=== PATIENT | female | born 1945 ===

== ENCOUNTER → 2020-02-28 | Outpatient (CLI) | payer SELFPAY | LOC: M LABSMTC 14:28 | PROVIDERS: ATTEND Pediatrics | DX: Z20.828 Contact with and (suspected) exposure to other viral communicable diseases (principal) ==

== ENCOUNTER → 2021-11-17 | Outpatient (REF) | payer MEDICARE, BC ==
[2021-11-17 17:21] LABS: RHEUMATOID FACTOR QUANT < 10.0 IU/ML (<15.0)
[2021-11-17 17:51] LABS: VITAMIN B12 LEVEL 602 PG/ML
[2021-11-19 12:25] LABS: FOLATE 19.1 NG/ML
[2021-11-26 21:11] LABS: ANTINUCLEAR ANTIBODIES DIRECT Negative (Negative); VITAMIN B1 LEVEL WHOLE BLOOD 107.7 nmol/L (66.5-200.0)
== END ==
LOC: M LAB REF 15:59
PROVIDERS: ATTEND Internal Medicine
DX: H53.2 Diplopia (principal)